=== PATIENT | male | born 1990 | race Caucasian/White ===

== ENCOUNTER 2020-12-10 18:01 | Emergency (ER) | payer OTHER ==
[~2020-12-10] VITALS: Ht 167.6 cm; Wt 104.6 kg
[2020-12-10 18:05] VITALS: BP 144/85
[2020-12-10] MEDS ORDERED: HYDROcodone/APAP 5/325 TABLET ONE (18:27)
[2020-12-10] MEDS ORDERED: LIDOCAINE GEL 2%, 5ML ONE ×2 (18:27→19:38)
[2020-12-10] MEDS ORDERED: LIDOCAINE GEL 2%, 5ML TP ONE (18:30)
[2020-12-10] MEDS ORDERED: HYDROcodone/APAP 5/325 TABLET PO PRN (18:30)
[2020-12-10] MEDS ORDERED: NEOSPORIN OINT. PKT 1 PACKET ONE (19:56)
== END 2020-12-10 20:13 | disposition home or self-care (01) ==
LOC: ED 20:00
DX: S76.112A Strain of left quadriceps muscle, fascia and tendon, initial encounter (principal); S50.811A Abrasion of right forearm, initial encounter; S50.812A Abrasion of left forearm, initial encounter; S80.212A Abrasion, left knee, initial encounter; S80.211A Abrasion, right knee, initial encounter; F17.200 Nicotine dependence, unspecified, uncomplicated; V29.9XXA Motorcycle rider (driver) (passenger) injured in unspecified traffic accident, initial encounter; Y93.89 Activity, other specified; Y92.410 Unspecified street and highway as the place of occurrence of the external cause; Y99.8 Other external cause status
CPT/HCPCS: 11042; 99285